=== PATIENT | female | born 1945 | race Caucasian/White ===

== ENCOUNTER 2024-05-20 09:29 | Outpatient (AMB) | payer MEDICARE, OTHER, SELFPAY ==
--- NOTE | 2024-05-20 09:35 | AM.OFFWIN_ITS ---
Intake Vital Signs 05/20/24 09:36 Height 5 ft 6.5 in Weight 186 lb BMI 29.6 BP 110/80 Blood Pressure Location Lt brachial Position Sitting Pulse 71 Pulse Source Pulse Oximeter Temp 98.3 F Temp Source Oral Pulse Oximetry (%) 97 Oxygen Delivery Method Room Air Intake Visit Reasons: EP- Possible UTI?? Urinating a lot, pain Intake Note: Pt is here today c/o ? UTI, urinating frequency Allergies No Known Allergies Allergy (Verified 05/20/24 09:41) HPI HPI Comments History of Present Illness Details Patient is a 78-year-old female complaining of 4 days of increased frequency of urination, burning with urination and increased urgency. She denies any fevers, low back pain or blood in her urine. Review of Systems Const All systems reviewed & are unremarkable except as noted in HPI and below Physical Exam Vital Signs: Last Vital Signs Temp 98.3 F 05/20/24 09:36 Pulse 71 05/20/24 09:36 BP 110/80 05/20/24 09:36 Pulse Ox 97 05/20/24 09:36 Oxygen Delivery Method Room Air 05/20/24 09:36 BMI result Body Mass Index 29.6 Const General: cooperative, healthy appearing, comfortable, no acute distress and well developed Orientation/consciousness: patient oriented x3 Limitations: no limitations HEENT Head: Yes normal to inspection Ears: hearing grossly normal bilaterally General nose exam: Normal external nose present Face and sinus: Yes normal facial exam Eyes General: appearance normal, both eyes and all related structures Neck Neck: Yes normal visual inspection and Yes full ROM Resp Effort & Inspection: normal respiratory effort and able to speak in complete sentences GI Inspection: Yes normal to inspection Palpation (GI): Soft to palpation and Tenderness to palpation present (GI) suprapubicly Skin General skin exam: no rashes or lesions noted Neuro General: patient oriented x3 Extrem General: Yes normal to inspection Results AMB Urinalysis, Automated UA Leukoctes 125 Adriane/uL Last Edit by Marga Villalta CMA on 05/20/24 09:49 UA Nitrite Negative Last Edit by Marga Villalta CMA on 05/20/24 09:49 UA Urobilinogen 0.2 mg/dL Last Edit by Marga Villalta CMA on 05/20/24 09:49 UA Protein 15 mg/dL Last Edit by Marga Villalta CMA on 05/20/24 09:49 UA pH 7.0 Last Edit by Marga Villalta CMA on 05/20/24 09:49 UA Blood 200 Kameron/uL Last Edit by Marga Villalta CMA on 05/20/24 09:49 UA Specific Compton 1.010 Last Edit by Marga Villalta CMA on 05/20/24 09:49 UA Ketone Negative Last Edit by Marga Villalta CMA on 05/20/24 09:49 UA Bilirubin 0 mg/dL Last Edit by Marga Villalta CMA on 05/20/24 09:49 UA Glucose 0 mg/dL Last Edit by Marga Villalta CMA on 05/20/24 09:49 Results Reviewed Results Reviewed: Laboratory Last Values Urine pH (Auto) 7.0 05/20/24 09:47 Specific Compton (Auto) 1.010 05/20/24 09:47 Urine Protein (Auto) 15 mg/dL 05/20/24 09:47 Glucose (UA)(Auto) 0 mg/dL 05/20/24 09:47 Urine Ketones (Auto) Negative 05/20/24 09:47 Urine Blood (Auto) 200 Kameron/uL 05/20/24 09:47 Urine Nitrite (Auto) Negative 05/20/24 09:47 Urine Bilirubin (Auto) 0 mg/dL 05/20/24 09:47 Urine Urobilinogen (Auto) 0.2 mg/dL 05/20/24 09:47 Leukocyte Esterase (Auto) 125 Adriane/uL 05/20/24 09:47 Assessment & Plan Assessment & Plan (1) UTI (urinary tract infection): Code(s): N39.0 - Urinary tract infection, site not specified Qualifiers: Urinary tract infection type: acute cystitis Hematuria presence: with hematuria Qualified Code(s): N30.01 - Acute cystitis with hematuria Plan: Gave red flag warning signs of when to go to the emergency department, otherwise sent cefuroxime to patient's pharmacy. Plan see above Orders: Orders AMB Urinalysis Automated Today Z13.9 - Encounter for screening, unspecified Medications: New cefuroxime axetil 500 mg PO Q12H 10 tabs 0RF Coding Level of Care Code New Pt Level 3 (52589) Diagnoses Acute cystitis with hematuria N30.01 Urinary tract infection type: acute cystitis Hematuria presence: with hematuria
[2024-05-20 09:36] VITALS: BP 110/80; PULSE 71; TEMP 36.8; O2SAT 97; BMI 29.6
== END 2024-05-20 10:02 | disposition home or self-care (01) ==
PROVIDERS: Visit Provider Physician Assistant
DX: N30.01 Acute cystitis with hematuria (principal); Z13.9 Encounter for screening, unspecified
CPT/HCPCS: 81003; 99203

== ENCOUNTER 2025-05-27 10:04 | Outpatient (AMB) | payer MEDICARE, OTHER, SELFPAY ==
[2025-05-27 10:11] VITALS: BP 120/62; PULSE 61; TEMP 36.9; O2SAT 97; BMI 29.4
--- NOTE | 2025-05-27 10:11 | AM.OFFWIN_ITS ---
Intake Vital Signs 05/27/25 10:11 Height 5 ft 6.5 in Weight 185 lb BMI 29.4 BP 120/62 Blood Pressure Location Rt brachial Position Sitting Pulse 61 Pulse Source Pulse Oximeter Temp 98.5 F Temp Source Oral Pulse Oximetry (%) 97 Oxygen Delivery Method Room Air Intake Visit Reasons: ep infected bug bite? Intake Note: pt presents with irritated lesion left forearm with itch, swelling and erythema Allergies bacitracin Allergy (Intermediate, Verified 05/27/25 10:15) rash chemicals Adverse Reaction (Severe, Uncoded 05/27/25 10:15) Anaphylaxis fragrances Adverse Reaction (Severe, Uncoded 05/27/25 10:15) Anaphylaxis Medication List - Last Reconciled 05/27/25 by Jose Angel Mata MD calcium carbonate-vitamin D3 600 mg-12.5 mcg (500 unit) (Calcium with Vit D3) caps PO cholecalciferol (vitamin D3) 25 mcg PO DAILY hydrochlorothiazide 12.5 mg PO DAILY lisinopril 5 mg PO DAILY simvastatin 20 mg PO BEDTIME vitamins A,C,E-odib-iirwov 4,296 mcg-226 mg-90 mg (PreserVision AREDS) 1 cap PO BID Do you need a note to return to daycare/school/sports/work: No HPI ep infected bug bite? HPI Details History of Present Illness The patient is a 79 year old female presenting with a bug bite. Left wrist Bug bite reaction: - The patient reports a bug bite that oc curred more than a week ago. - Describes the bite as itchy and hot, i ndicating an allergic reaction. - Redness is present at the site of the bite. - There is concern for potential infecti on based on past experience with cellulitis. - Symptoms have persisted despite the us e of igzl-jhf-lrnybnu antihistamine (Benadryl). - The patient reports that the antihista mine causes drowsiness when taken. - The patient has a history of celluliti s, which prompted her visit due to concerns of infection spreading. - No specific information on aggravating factors aside from potential drug- induced drowsiness. Problem List - Bug bite reaction with associated homero rgic response - History of cellulitis Patient Instructions - antibiotic sent, use as directed - Monitor the bite for signs of spreadin g infection. - Use Benadryl at night if itching inter feres with sleep. - Call if symptoms worsen or if there ar e concerns about spreading. Review of Systems - General: No fever no chills - Neurological: No headaches no dizziness - Ear nose throat: No sore throat no hearing difficulty no ear pain - Cardiovascular: No syncope, no chest pain, no palpitations - Gastrointestinal: No nausea vomiting or diarrhea Physical Exam General: No acute distress HEENT: No acute findings Neck: Supple Respiratory system: Able to talk in full sentences, no audible wheeze Gastrointestinal: No pain Extremities: Left anterior forearm with single bug bite surrounded by swelling and redness size of 4 in x 2 in, vascular intact elbow and wrist joint with full range of motion DISTRIBUTION ASSOCIATE: Alert awake oriented x3 motor intact Skin: Normal turgor Physical Exam Vital Signs: Last Vital Signs Temp 98.5 F 05/27/25 10:11 Pulse 61 05/27/25 10:11 BP 120/62 05/27/25 10:11 Pulse Ox 97 05/27/25 10:11 Oxygen Delivery Method Room Air 05/27/25 10:11 BMI result Body Mass Index 29.4 Assessment & Plan Assessment & Plan (1) Cellulitis of forearm, left: Code(s): L03.114 - Cellulitis of left upper limb Plan History of Present Illness The patient is a 79 year old female presenting with a bug bite. Left wrist Bug bite reaction: - The patient reports a bug bite that occurred more than a week ago. - Describes the bite as itchy and hot, indicating an allergic reaction. - Redness is present at the site of the bite. - There is concern for potential infection based on past experience with cellulitis. - Symptoms have persisted despite the use of sqqx-knb-lgunila antihistamine (Benadryl). - The patient reports that the antihistamine causes drowsiness when taken. - The patient has a history of cellulitis, which prompted her visit due to concerns of infection spreading. - No specific information on aggravating factors aside from potential drug- induced drowsiness. Problem List - Bug bite reaction with associated allergic response - History of cellulitis Patient Instructions - antibiotic sent, use as directed - Monitor the bite for signs of spreading infection. - Use Benadryl at night if itching interferes with sleep. - Call if symptoms worsen or if there are concerns about spreading. Medications: New amoxicillin-pot clavulanate 875-125 mg 1 tab PO BID 14 tabs 0RF 7 days Coding Level of Care Code Est Pt Level 3 (37047) Diagnoses Cellulitis of forearm, left L03.114
--- OUTSIDE RECORDS SUMMARY | 2025-05-27 10:59 | XMS_ITS | Patient Health Record ---
Author Organization [facility] Address [address] [place] [address] Care Team Providers Care Systems Software Specialist Name Role Phone Utzschhilarioider CATALYST RECOVERY OPERATOR, Cecily Primary Care Provider Unav ailable Danyajazmine Elsi Unavailable [phone] Allergies Allergen (clinical drug ingredient) Drug/Non Drug Allergy documented on EMR Reaction Allergy Type Onset Date Status Multiple Chemicals (uncoded) nasal and throat swelling Allergy Active Neosporin rash Drug Allergy Active Reason For Referral No Information Medications Medication SIG (Take, Route, Frequency, Duration) Notes Start Date End Date Status Vitamin D3 25 MCG (1000 UT) 1 capsule Or ally Once a day Active LORazepam 0.5 MG 1 tablet at bedtime as needed Orally Once a day PRN Active Benadryl Allergy PRN Act joel PreserVision AREDS A ctive Calcium + Vitamin D3 Active hydroCHLOROthiazide 12.5 MG as directed Orally Active Naftifine HCl 2 % 1 application Car Repairer [place] ally Once a day; Duration: 28 days 12/28/2024 Active Lisinopril 5 MG 1 tablet Orally Once a day Active Simvastatin 20 MG 1 tablet in the even ing Orally Once a day Active Social History Tobacco Use: Social History Observation Description Date Details (start date - stop date) Never Smoker NA - NA Tobacco Use/Smoking Question Answer Notes Are you a: nonsmoker Additional Findings: Tobacco Non-User Current no n-smoker Alcohol Screen Question Answer Notes Did you have a drink contain ing alcohol in the past year? Yes How often did you have a dri nk containing alcohol in the past year? Monthly or less (1 point) Points 1 Interpretation Negative Tobacco use other than smoking: Question Answer Notes Are you an other tobacco user? No Problems Problem Type SNOMED Code ICD Code Onset Dates Problem Status W/U Status Risk Notes Problem Acquired hammer toe of right foot (9437458125611563 ) Hammer toe of right foot (M20.41) Active confirmed Problem Acquired hammer toe of left foot (2599210079849402 ) Hammer toe of left foot (M20.42) Active confirmed Problem Localized, primary osteoarthritis of the ankle and/or foot (152446610) Osteoarthritis of right ankle and foot (M19.071) Active confirmed Problem Localized, primary osteoarthritis of the ankle and/or foot (179709797) Osteoarthritis of left ankle and foot (M19.072) Active confirmed Problem 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) (5437062829580156 7) Pes cavus of left foot (Q66.72) Active confirmed Problem Congenital pes cavus of right foot (disorder) (1639605539362473 1) Pes cavus of right foot (Q66.71) Active confirmed Vital Signs Blood pressure diastolic 70 mm Hg 01/11/2025 Height 5'7 in 01/11/2025 Blood pressure systolic 120 mm Hg 01/11/2025 Weight 185 lbs 01/11/2025 BMI 28.97 kg/m2 01/11/2025 Encounters Encounter Location Date Provider Diagnosis [facility] [address] [address] 01/11/2025 Elsi Alfaro Tinea pedis of both feet B35.3 ; Ganglion of foot, left M67.472 and Mass of soft tissue M79.89 [facility] [address] [address] 12/28/2024 Elsi Alfaro Assessments Encounter Date Diagnosis (ICD Code) Assessment Notes Treatment Notes Treatment Clinical Notes Section Notes 01/11/2025 Ganglion of foot, left (ICD-10 - M67.472) 01/11/2025 Tinea pedis of both feet (ICD-10 - B35.3) 01/11/2025 Mass of soft tissue (ICD-10 - M79.89) Plan Of Treatment Pending Test Test Name Order Date X ray : Foot, left 3V 12/04/2022 X ray : Foot, right 3V 12/04/2022 Insurance Providers Payer Name Payer Address Payer Phone Subscriber Number Group Number Insured Name Patient Relationship to Insured Coverage Start Date Coverage End Date Medicare [employer] [address] [place] [address] [id number] Vickie Storey Self - patient is the insured [facility] [address] [place] [phone] [id number] Vickie Storey Self - patient is the insured Medical (General) History Medical History History ICD Code Anxiety Back,Hip,and Knee pain CAD (Cholesterol) Cataracts covid-19 Depression High blood pressure Lyme disease Macular degeneration Numbness Poor circulation Psoriasis/eczema Psychiatric disorder Sciatica Spina bifida Warts Measles Mumps Chicken pox [facility] Surgical History Surgery Date(Month/Year) cataract surgery 2020
== END 2025-05-27 12:16 | disposition home or self-care (01) ==
PROVIDERS: Visit Provider Internal Medicine
DX: L03.114 Cellulitis of left upper limb (principal)

== ENCOUNTER → 2025-05-27 10:04 | Outpatient (BNVA) | payer MEDICARE, OTHER, SELFPAY | PROVIDERS: Visit Provider Internal Medicine | DX: L03.114 Cellulitis of left upper limb (principal) | CPT/HCPCS: 99212 ==